=== PATIENT | female | born 1995 | race Asian ===

== ENCOUNTER 2024-05-25 10:30 | Inpatient (IN) | payer OTHER ==
[2024-05-25] MEDS: PENICILLIN G POTASSIUM 5,000,000 (5Mm) UNIT VIAL IVPB ONE (11:00)
[2024-05-25] MEDS ORDERED: PENICILLIN G POTASSIUM 5,000,000 UNIT/250 ML BAG IVPB ONE (11:31)
[2024-05-25 11:37] VITALS: BMI 30.9
[2024-05-25] MEDS: PENICILLIN G POTASSIUM 5,000,000 (5Mm) UNIT VIAL IVPB SCH (11:45)
[2024-05-25] MEDS: MISOPROSTOL 25 MCG TABLET (COMPOUNDED BY PHARMACY) BUC ONE (12:10)
[2024-05-25 12:42] LABS: BASO % 0.4 % (0-2.0); EOS % 0.7 % (0-4.5); HEMOGLOBIN 8.8 GM/dL (10.7-15.3); LYMPH % 17.4 % (8-40); MCHC 31.3 g/dl (32.0-36.0); MEAN PLT VOLUME 7.6 fl (7.5-11.1); MONO % 7.3 % (3.8-10.2); NEUT % 74.2 % (42.8-82.8); PLATELET COUNT 256 10^3/uL (134-434); RBC 4.18 M/mm3 (3.60-5.2); RDW 18.1 % (11.6-15.6); WHITE BLOOD COUNT 10.9 K/mm3 (4.0-10.0)
[2024-05-25 12:49] LABS: INR 0.99 (0.83-1.09); PROTHROMBIN TIME (PATIENT) 11.2 SEC (9.7-13.0)
[2024-05-25 13:05] LABS: POTASSIUM 4.9 mmol/L (3.5-5.1)
[2024-05-25 13:07] LABS: BLOOD UREA NITROGEN 8.2 mg/dL (7-18); CALCIUM 8.6 mg/dL (8.5-10.1)
[2024-05-25 13:11] LABS: CREATININE 0.5 mg/dL (0.55-1.3)
[2024-05-25 13:23] LABS: ANISOCYTOSIS 3+; MACROCYTOSIS 0
[2024-05-25] MEDS: ELECTROLYTE-148 SOLN 1,000 ML IV SCH (15:00)
[2024-05-25] MEDS: PENICILLIN G POTASSIUM 2,500,000 UNIT in SODIUM CHLORIDE 100 ML IVPB SCH (15:20)
[2024-05-25] MEDS ORDERED: OXYTOCIN 30 UNITS in 0.9% NS 30 UNIT/500 ML INFUS.BAG IVPB ONE (17:56)
[2024-05-25] MEDS: OXYTOCIN 30 UNITS in 0.9% NS 30 UNIT/500 ML INFUS.BAG IVPB SCH (18:05)
[2024-05-25] MEDS ORDERED: BUTORPHANOL TARTRATE 2 MG/ML VIAL ONE (21:59)
[2024-05-25] MEDS ORDERED: PROMETHAZINE HCL 25 MG/1 ML VIAL ONE (21:59)
[2024-05-25] MEDS: PROMETHAZINE HCL 25 MG/1 ML VIAL IVPB ONE (22:09)
[2024-05-25] MEDS: BUTORPHANOL TARTRATE 1 MG/ML VIAL IVPB ONE (22:09)
[2024-05-25] MEDS ORDERED: OXYTOCIN 20 UNITS in 0.9% NS 20 UNIT/1,000 ML INFUS.BAG IV ONE (23:28)
[2024-05-26] MEDS ORDERED: MISOPROSTOL 200 MCG TABLET ONE (01:10)
[2024-05-26] MEDS: OXYTOCIN 20 UNITS in 0.9% NS 20 UNIT/1,000 ML INFUS.BAG IV SCH (01:15)
[2024-05-26] MEDS: MISOPROSTOL 200 MCG TABLET PR ONE (01:20)
[2024-05-26 01:39] LABS: CORD BASE EXCESS -6.3 mmol/L (0-2); CORD HCO3 18.5 mmHg (20-29); CORD PCO2 35.5 mmHg (30-78); CORD PCO2 62.2 mmHg (30-78); CORD pH 7.185 (7.14-7.44); CORD pH 7.334 (7.14-7.44)
[2024-05-26] MEDS ORDERED: METHYLERGONOVINE MALEATE 0.2 MG/1 ML AMP IM PRN (01:54)
[2024-05-26] MEDS ORDERED: WITCH HAZEL 50% (TUCKS) 40 PAD/JAR PAD TP PRN (01:54)
[2024-05-26] MEDS ORDERED: BENZOCAINE 20% 57 GM BOTTLE TP PRN (01:54)
[2024-05-26] MEDS ORDERED: BENZOCAINE 28 GM HEMORRHOIDAL OINTMENT TP PRN (01:54)
[2024-05-26] MEDS ORDERED: BISACODYL 10 MG SUPP.RECT RC PRN (01:54)
[2024-05-26] MEDS ORDERED: IBUPROFEN 600 MG TABLET (FP) PO ONE (03:33)
[2024-05-26] MEDS: IBUPROFEN 600 MG TABLET (FP) PO PRN (03:45)
[2024-05-26] MEDS: PRENATAL VITAMINS W/ FOLIC ACID TABLET (FP) PO SCH (09:12)
[2024-05-26] MEDS: IRON SUCROSE INJECTION 200 MG in SODIUM CHLORIDE 100 ML IVPB ONE (09:40)
[2024-05-26] MEDS: ACETAMINOPHEN 325 MG TABLET (FP) PO PRN (22:06)
[2024-05-26] MEDS: SENNOSIDES/DOCUSATE COMBO (SENNA PLUS) TABLET (UD) PO PRN (22:07)
[2024-05-27 08:12] LABS: BASO % 0.2 % (0-2.0); EOS % 0.8 % (0-4.5); HEMATOCRIT 24.2 % (32.4-45.2); HEMOGLOBIN 7.4 GM/dL (10.7-15.3); MCH 20.8 pg (25.7-33.7); MCHC 30.7 g/dl (32.0-36.0); MEAN CELL VOLUME 67.9 fl (80-96); MEAN PLT VOLUME 7.1 fl (7.5-11.1); MONO % 6.7 % (3.8-10.2); NEUT % 72.3 % (42.8-82.8); PLATELET COUNT 223 10^3/uL (134-434); RBC 3.57 M/mm3 (3.60-5.2); RDW 18.3 % (11.6-15.6); WHITE BLOOD COUNT 12.2 K/mm3 (4.0-10.0)
[2024-05-27] MEDS: IRON SUCROSE INJECTION 200 MG in SODIUM CHLORIDE 100 ML IVPB ONE (17:10)
[2024-05-28 13:59] VITALS: BP 117/73; PULSE 97; RESP 16; TEMP 100
== END 2024-05-28 16:00 | disposition home or self-care (01) | DRG 560 ==
LOC: JLDR 10:30 → J3W 05-26 03:47
PROVIDERS: ADMIT Obstetrics & Gynecology; ATTEND Obstetrics & Gynecology
PROC: 10E0XZZ Delivery of Products of Conception, External Approach (ICD-10-PCS; principal; 2024-05-26)
PROC: 0KQM0ZZ Repair Perineum Muscle, Open Approach (ICD-10-PCS; 2024-05-26)
PROC: 0W8NXZZ Division of Female Perineum, External Approach (ICD-10-PCS; 2024-05-26)
DX: O41.03X0 Oligohydramnios, third trimester, not applicable or unspecified (principal); O42.92 Full-term premature rupture of membranes, unspecified as to length of time between rupture and onset of labor; O99.824 Streptococcus B carrier state complicating childbirth; O70.1 Second degree perineal laceration during delivery; O99.013 Anemia complicating pregnancy, third trimester; Z3A.38 38 weeks gestation of pregnancy; Z37.0 Single live birth
CPT/HCPCS: 0241U-QW; 36415; 36600; 59409; 80048; 82803; 85025; 85610; 85730; 86780; 86803; 86850; 86900; 86901; J1756

== ENCOUNTER 2024-05-30 12:40 | Emergency (ER) | payer OTHER ==
[2024-05-30 12:48] VITALS: BP 114/75; PULSE 95; RESP 20; TEMP 98.3; BMI 35.0
[2024-05-30] MEDS ORDERED: LIDOCAINE 5% TOPICAL PATCH ONE (14:42)
[2024-05-30] MEDS ORDERED: ACETAMINOPHEN INJECTION 100 ML ONE (14:42)
[2024-05-30 15:02] LABS: BASO % 0.2 % (0-2.0); EOS % 1.2 % (0-4.5); HEMOGLOBIN 7.8 GM/dL (10.7-15.3); LYMPH % 15.7 % (8-40); MCH 21.7 pg (25.7-33.7); MEAN CELL VOLUME 69.8 fl (80-96); MEAN PLT VOLUME 6.9 fl (7.5-11.1); MONO % 5.7 % (3.8-10.2); NEUT % 77.2 % (42.8-82.8); PLATELET COUNT 275 10^3/uL (134-434); RBC 3.59 M/mm3 (3.60-5.2); WHITE BLOOD COUNT 9.1 K/mm3 (4.0-10.0)
[2024-05-30] MEDS: ACETAMINOPHEN 1000 MG/100 ML BAG IVPB ONE (15:04)
[2024-05-30] MEDS: LIDOCAINE 5% TOPICAL PATCH TP ONE (15:04)
[2024-05-30 15:20] LABS: POTASSIUM 4.2 mmol/L (3.5-5.1)
[2024-05-30 15:26] LABS: ALBUMIN 2.4 g/dl (3.4-5.0); BLOOD UREA NITROGEN 12.6 mg/dL (7-18); CALCIUM 8.5 mg/dL (8.5-10.1)
[2024-05-30 15:27] LABS: CREATININE 0.6 mg/dL (0.55-1.3)
[2024-05-30 15:29] LABS: BILIRUBIN,TOTAL 0.4 mg/dL (0.2-1); TOT PROT 6.1 g/dl (6.4-8.2)
[2024-05-30 15:34] LABS: ANISOCYTOSIS 3+; MACROCYTOSIS 0
[2024-05-30 17:07] LABS: HCG,QUALITATIVE URINE Positive
[2024-05-30 17:24] LABS: EPI CELLS 3 /uL (0-25.1); HYALINE CASTS 1 /uL (0-3.1); URINE APPEARANCE CLEAR; URINE BACTERIA 37 /uL (0-1359); URINE BILIRUBIN NEGATIVE (NEGATIVE); URINE COLOR YELLOW; URINE GLUCOSE (UA) NEGATIVE (NEGATIVE); URINE KETONE NEGATIVE (NEGATIVE); URINE LEUK ESTERASE 2+ (NEGATIVE); URINE NITRITE NEGATIVE (NEGATIVE); URINE PROTEIN 1+ (NEGATIVE); URINE RBC 2105 /uL (0-23.9); URINE UROBILINOGEN 0.2 mg/dL (0.2-1.0); URINE WBC 770 /uL (0-25.8)
[2024-05-30] MEDS ORDERED: LIDOCAINE PATCH REMOVAL MC ONE (22:00)
== END 2024-05-30 18:02 | disposition home or self-care (01) ==
LOC: JER 12:40
PROC: 3E033NZ Introduction of Analgesics, Hypnotics, Sedatives into Peripheral Vein, Percutaneous Approach (ICD-10-PCS; principal; 2024-05-30)
DX: O99.893 Other specified diseases and conditions complicating puerperium (principal); M54.42 Lumbago with sciatica, left side; M54.41 Lumbago with sciatica, right side
CPT/HCPCS: 36415; 71045-TC-FY; 80053; 81003; 82570; 83880; 84156; 84484; 84703; 85025; 86850; 86900; 86901; 87086; 93005; 93010; 96374; 99285-25; J0131